=== PATIENT | female | born 1970 | race Caucasian/White ===

== ENCOUNTER 2021-10-08 00:16 | Outpatient (CLI) | payer MEDICARE, MEDICAID, SELFPAY ==
--- NOTE | 2021-10-08 11:15 | DI.MRI_ITS ---
Exam(s) MR LUMBAR SPINE WO EXAM: MR LUMBAR SPINE WO CLINICAL HISTORY: WORSENING BACK PAIN, S/P FALL WITH L5 COMP FX. TECHNIQUE: Multiplanar multisequence MRI of the Lumbar spine was performed. COMPARISON: RF XR SACRUM/COCCYX MIN 2V from 09/14/2021 RF XR HIP RT MIN 2V AND PELVIS from 09/14/2021 FINDINGS: The examination is limited due to patient motion artifact secondary to the patient's extreme discomfo rt. Bones: The last intervertebral disc space is designated the L5/S1 level for the numbering purpose of this examination. There is a compression fracture of the L5 vertebral body. There is loss of half of the height of the vertebral body. There is mild hyperintense signal on the T2 and hypointense sig nal on the T1 weighted image within the vertebral body. Alignment is satisfactory. Mild degenerative endplate signal changes are seen at L3-4 and L4-L5. Cord: The conus tip ends at the T12 level. It is of normal size and signal intensity. T12-L1: No disc herniations or bulges are present. No central spinal canal or neural foraminal stenos is. L1-2: No disc herniations or bulges are present. No central spinal canal or neural foraminal stenosis . L2-3: No disc herniations or bulges are present. No central spinal canal or neural foraminal stenosis . L3-4: No disc herniations or bulges are present. No central spinal canal or neural foraminal stenosis . L4-5: No disc herniations or bulges are present. No central spinal canal or neural foraminal stenosis . L5-S1: There is a mild diffuse disc bulge. No significant central spinal canal stenosis.There is mil d bilateral neural foraminal stenosis. Soft tissues: The visualized SI joints and sacrum are well maintained. The paraspinal soft tissues ar e unremarkable. IMPRESSION: 1. Examination is severely limited due to patient motion artifact secondary to patient extreme discom fort. 2. There is a subacute fracture of the L5 vertebral body with loss of half of the height of the verte bral body. 3. Diffuse disc bulge at L5-S1 contributing to the mild bilateral neural foraminal stenosis. 4. No significant central spinal canal stenosis in the lumbar spine. DATA REPOSITORY:
== END 2021-10-08 00:36 ==
PROVIDERS: Visit Provider Family Medicine
DX: M25.551 Pain in right hip (principal); S32.059A Unspecified fracture of fifth lumbar vertebra, initial encounter for closed fracture; X58.XXXA Exposure to other specified factors, initial encounter; M51.27 Other intervertebral disc displacement, lumbosacral region
CPT/HCPCS: 72148